=== PATIENT | male | born 1980 | race Caucasian/White ===

== ENCOUNTER → 2018-11-04 | Outpatient (REF) ==
--- NOTE | 2018-11-04 17:33 | Diagnostic Imaging Report ---
INDICATION: Fall and low back pain. TIME OF EXAM: 11:25 a.m. FINDINGS: Three views of the lumbar spine were obtained. Curvature and alignment are normal. Vertebral body heights are well maintained. There is mild disc space narrowing at L5-S1 compatible with degenerative disc disease. Remaining disc spaces are well maintained. IMPRESSION: No acute bony abnormality is detected. Dictated by: Dictated on workstation # [id number]
== END ==
LOC: OCC 11:13
PROVIDERS: ATTEND Family Medicine
CPT/HCPCS: 72100